=== PATIENT | female | born 1945 | race Caucasian/White ===

== ENCOUNTER 2020-05-01 09:40 | Emergency (ER) | payer MEDICARE ==
[~2020-05-01] VITALS: Ht 170.2 cm; Wt 95.5 kg
[2020-05-01] MEDS ORDERED: NEURONTIN300 M1 PO (09:58)
[2020-05-01] MEDS ORDERED: ZESTRIL30 MG PO (09:59)
[2020-05-01] MEDS ORDERED: HYDROCHLOROTH12.5 M2 PO (09:59)
[2020-05-01] MEDS ORDERED: ZYRTEC ALLERGY10 MG PO (09:59)
[2020-05-01] MEDS ORDERED: VITEX PO (10:00)
[2020-05-01] MEDS ORDERED: MAGNESIUM400 MG PO (10:00)
[2020-05-01 10:46] LABS: EOS # 0.6 (0.04-0.40); EOS % 5.4 % (1.0-5.0); HEMATOCRIT 40.9 % (37.0-47.0); HEMOGLOBIN 13.5 g/dL (12.5-16.0); LYMPH# 2.8 (1.50-4.00); MEAN CELL VOLUME 93 fl (78-100); MEAN CORPUSCULAR HEMOGLOBIN 31 pg (27-31); MEAN CORPUSCULAR HGB CONC 33 g/dL (33-37); MONO # 0.9 (0.20-0.80); NEU # 7.4 (1.40-6.50); PLATELET COUNT 265 K/mm3 (130-400); RED BLOOD COUNT 4.39 M/mm3 (4.10-5.30); RED CELL DISTRIBUTION WIDTH 12.5 % (11.5-14.5); WHITE BLOOD COUNT 11.8 K/mm3 (4.8-10.8)
[2020-05-01 11:08] LABS: D-DIMER 1.15 mg/L FEU (0.15-0.50)
[2020-05-01 11:26] LABS: ALBUMIN 4.2 g/dL (3.4-4.8)
[2020-05-01 11:27] LABS: POTASSIUM 4.4 mmol/L (3.5-5.1)
[2020-05-01 11:28] LABS: CALCIUM 8.9 mg/dL (8.3-10.5)
[2020-05-01 11:29] LABS: TOTAL PROTEIN 7.3 g/dL (6.2-8.1)
[2020-05-01 11:31] LABS: TOTAL BILIRUBIN 0.5 mg/dL (0.2-1.2)
[2020-05-01 13:51] VITALS: BP 134/82
== END 2020-05-01 14:38 | disposition short-term general hospital (02) ==
LOC: ED 09:40
PROVIDERS: Nurse Practitioner Primary Care
DX: S06.5X9A Traumatic subdural hemorrhage with loss of consciousness of unspecified duration, initial encounter (principal); R55 Syncope and collapse; I10 Essential (primary) hypertension; Z79.82 Long term (current) use of aspirin; Z86.73 Personal history of transient ischemic attack (TIA), and cerebral infarction without residual deficits; V80.010A Animal-rider injured by fall from or being thrown from horse in noncollision accident, initial encounter; Y93.52 Activity, horseback riding